=== PATIENT | male | born 1980 | race Caucasian/White ===

== ENCOUNTER 2017-08-10 23:07 | Emergency (ER) | payer OTHER ==
[~2017-08-10] VITALS: Ht 177.8 cm; Wt 108.4 kg
[2017-08-10 23:17] VITALS: Ht 177.8 cm; Wt 108.4 kg
[2017-08-11 01:45] VITALS: BP 141/95
== END 2017-08-11 01:25 | disposition home or self-care (01) ==
LOC: ED 23:07
DX: H60.91 Unspecified otitis externa, right ear (principal)